=== PATIENT | female | born 1970 | race Caucasian/White ===

== ENCOUNTER 2016-09-23 06:25 | Day surgery (SDC) | payer MEDICAID ==
[2016-09-22 10:37] LABS: MEAN CORPUSCULAR VOLUME 74 fL (80-94)
[2016-09-22 10:46] LABS: HEMATOCRIT 34.5 % (36-48); HEMOGLOBIN 10.8 g/dL (12.0-16.0); MEAN CORPUSCULAR HEMOGLOBIN 23 pg (27-31); MEAN CORPUSCULAR HGB CONC 31 g/dL (33-37); PLATELET COUNT (AUTO) 421 K/uL (140-450); RED BLOOD CELL COUNT(AUTO) 4.66 MIL/uL (4.20-5.40); RED CELL DISTRIBUTION WIDTH 30.3 % (11.6-13.7)
[2016-09-22 10:59] LABS: ALBUMIN 1.1 g/dL (3.4-5.0); ANION GAP 10.4 (8-16); CALCIUM 6.9 mg/dL (8.5-10.1); CARBON DIOXIDE 29.7 mmol/L (21-32); CREATININE 0.7 mg/dL (0.6-1.3); POTASSIUM 3.1 mmol/L (3.5-5.1); TOTAL BILIRUBIN 5.8 mg/dL (0.0-1.0); TOTAL PROTEIN, SERUM 5.4 g/dL (6.4-8.2)
[2016-09-22 11:05] LABS: BAND % (MANUAL) 1 % (0-8); EOSINOPHILS % (MANUAL) 9 % (0-4); LYMPHOCYTES % (MANUAL) 8 % (20-46); MONOCYTES % (MANUAL) 5 % (5-12); NEUTROPHILS % (MANUAL) 77 (43-65)
[2016-09-22 11:12] LABS: PLATELET ESTIMATE ADEQUATE; TARGET CELLS 1+
[2016-09-22 11:13] LABS: POLYCHROMASIA 1+
[~2016-09-23] VITALS: Ht 157.5 cm; Wt 65.3 kg
[2016-09-23] MEDS ORDERED: LIDOCAINE/EPI MPF 1%1:200000 30 ML VIAL INJ ONE (07:32)
[2016-09-23] MEDS ORDERED: BUPIVACAINE-MPF/EPI 0.25% 30 ML VIAL INJ ONE (07:33)
[2016-09-23] MEDS ORDERED: ONDANSETRON 4 MG/2 ML VIAL IVP ONE (07:34)
[2016-09-23] MEDS ORDERED: PROPOFOL 200 MG/20 ML VIAL IV ONE (07:34)
[2016-09-23] MEDS ORDERED: MIDAZOLAM 2 MG/2 ML VIAL ONE (07:39)
[2016-09-23] MEDS ORDERED: fentaNYL 0.05 MG/ML VIAL ONE (07:39)
[2016-09-23] MEDS ORDERED: ceFAZolin 1,000 MG VIAL ONE (07:53)
[2016-09-23] MEDS ORDERED: HYDROcodone/APAP 5/325 MG 1 TAB TAB PO PRN (08:50)
[2016-09-23] MEDS ORDERED: MORPHINE SULFATE 4 MG/ML SYR IV PRN (08:50)
[2016-09-23] MEDS ORDERED: MORPHINE SULFATE 2 MG/ML SYR IVP PRN (08:50)
[2016-09-23] MEDS ORDERED: HYDROmorphone 1 MG/ML AMP IVP PRN (08:50)
[2016-09-23] MEDS ORDERED: ONDANSETRON 4 MG/2 ML VIAL IV PRN (08:50)
[2016-09-23] MEDS ORDERED: HYDR-4446 PO (08:55)
[2016-09-23] MEDS ORDERED: ONDA4TAB PO (08:55)
== END 2016-09-23 10:15 | disposition home or self-care (01) ==
LOC: MDS 06:25 → MMU 06:25 → MDS 10:15
PROVIDERS: ATTEND Surgery
DX: C16.9 Malignant neoplasm of stomach, unspecified (principal); K21.9 Gastro-esophageal reflux disease without esophagitis; D64.9 Anemia, unspecified
CPT/HCPCS: 36415; 36561; 71010; 76000; 76937; 80053; 81025; 85025; 86886; 86900; 86901; 93005; C1751; J0690; J1644; J2001; J2250; J2270; J2405; J2704; J3010; J3490; J7030; J7060; J7120; Q0092